=== PATIENT | female | born 1985 | race Hispanic/Latino ===

== ENCOUNTER 2016-06-10 10:26 | Day surgery (SDC) | payer MEDICAID, OTHER ==
[~2016-06-10] VITALS: Ht 160 cm; Wt 98.4 kg
[~2016-06-10 10:26] MED LIST: CODE118S2 PO; DOCU100C37 PO; FERR-84 PO; GFN600TCR PO; IBUP-1773 PO; PRD20T PO; PREN-53 PO
--- NOTE | 2016-06-10 10:38 | ED Abdominal Pain ---
General Stated Complaint: ABD PAIN Source of Information: Patient Exam Limitations: No Limitations History of Present Illness Time Seen By Provider: 10:37 Initial Comments to ER with epigastric abdominal pain that began at 8 p.m. last night after eating fried chicken. She's had nausea and vomiting as well. She attempted to eat cereal this morning but only ate about 3 bites due to the pain. Severity/Quality: Moderate Location: Epigastric Associated Symptoms: No Fever/Chills, Nausea/Vomiting Allergies and Home Medications Allergies Coded Allergies: No Known Drug Allergies (Unverified , 02/01/13) Review of Systems Constitutional: see HPI EENTM: No Symptoms Reported Respiratory: No Symptoms Reported Cardiovascular: No Symptoms Reported Gastrointestinal: See HPI Abdominal Pain Nausea Vomiting Genitourinary: No Symptoms Reported Musculoskeletal: no symptoms reported Skin: no symptoms reported Psychiatric/Neurological: No Symptoms Reported Endocrine: No Symptoms Reported Past Jqslmpn-Wztncs-Wlzcmc Hx Patient Social History Recent Foreign Travel: No Contact w/Someone Who Travel: No Recent Hopitalizations: No Immunizations Up To Date Tetanus Booster (TDap): Unknown PED Vaccines UTD: Yes Seasonal Allergies Seasonal Allergies: No Surgeries HX Surgeries: No Respiratory Hx Respiratory Disorders: No Cardiovascular Hx Cardiac Disorders: No Neurological Hx Neurological Disorders: No Reproductive System Hx Reproductive Disorders: No Sexually Transmitted Disease: No HIV/AIDS: No Genitourinary Hx Genitourinary Disorders: No Gastrointestinal Hx Gastrointestinal Disorders: No Musculoskeletal Hx Musculoskeletal Disorders: No Endocrine Hx Endocrine Disorders: No HEENT HX ENT Disorders: No Cancer Hx Cancer: No Psychosocial Hx Psychiatric Problems: No Integumentary HX Skin/Integumentary Disorder: No Blood Transfusions Hx Blood Disorders: No Adverse Reaction to a Blood Tr: No Family Medical History Family Medial History: Hypercholesterolemia 19 MOTHER Physical Exam Vital Signs VS - Last 72 Hours, by Label 06/10/16 10:30 Temp 96.0 Pulse 96 Resp 18 B/P 135/75 Pulse Ox 98 O2 Delivery Room Air Capillary Refill : General Appearance: WD/WN no apparent distress obese HEENT: PERRL/EOMI normal ENT inspection Neck: non-tender full range of motion Respiratory: normal breath sounds no respiratory distress no accessory muscle use Cardiovascular: regular rate, rhythm no murmur Gastrointestinal: normal bowel sounds soft tenderness (right upper quadrant and epigastric) Extremities: normal range of motion non-tender Neurologic/Psychiatric: no motor/sensory deficits alert normal mood/affect oriented x 3 Skin: normal color warm/dry Progress/Results/Core Measures Results/Orders Lab Results Laboratory Tests Test 06/10/16 10:21 06/10/16 10:41 Range/Units Alanine Aminotransferase (ALT/SGPT) 16 0-55 U/L Albumin 4.2 3.2-4.5 G/DL Alkaline Phosphatase 89 40-136 U/L Amylase Level 52 25-125 U/L Anion Gap 10 5-14 MMOL/L Aspartate Amino Transf (AST/SGOT) 15 5-34 U/L BUN/Creatinine Ratio 15 Basophils # (Auto) 0.0 0.0-0.1 10^3/uL Basophils (%) (Auto) 0 0-10 % Blood Urea Nitrogen 11 7-18 MG/DL Calcium Level 9.4 8.5-10.1 MG/DL Carbon Dioxide Level 22 21-32 MMOL/L Chloride Level 108 H 98-107 MMOL/L Creatinine 0.73 0.60-1.30 MG/DL Eosinophils # (Auto) 0.0 0.0-0.3 10^3/uL Eosinophils (%) (Auto) 0 0-10 % Estimat Glomerular Filtration Rate > 60 Glucose Level 111 H 70-105 MG/DL Hematocrit 36 35-52 % Hemoglobin 11.8 11.5-16.0 G/DL Lipase 18 8-78 U/L Lymphocytes # (Auto) 1.3 1.0-4.0 X 10^3 Lymphocytes (%) (Auto) 11 L 12-44 % Mean Corpuscular Hemoglobin 24 L 25-34 PG Mean Corpuscular Hemoglobin Concent 33 32-36 G/DL Mean Corpuscular Volume 74 L 80-99 FL Mean Platelet Volume 10.5 H 7.4-10.4 FL Monocytes # (Auto) 0.4 0.0-1.0 X 10^3 Monocytes (%) (Auto) 4 0-12 % Neutrophils # (Auto) 10.1 H 1.8-7.8 X 10^3 Neutrophils (%) (Auto) 85 H 42-75 % Platelet Count 348 130-400 10^3/uL Potassium Level 3.7 3.6-5.0 MMOL/L Red Blood Count 4.89 4.35-5.85 10^6/uL Red Cell Distribution Width 16.3 H 10.0-14.5 % Sodium Level 140 135-145 MMOL/L Total Bilirubin 0.4 0.1-1.0 MG/DL Total Protein 7.6 6.4-8.2 G/DL White Blood Count 11.9 H 4.3-11.0 10^3/uL Urine Bacteria MODERATE H /HPF Urine Bilirubin NEGATIVE NEGATIVE Urine Casts NONE /LPF Urine Clarity CLEAR Urine Color YELLOW Urine Crystals NONE /LPF Urine Culture Indicated YES Urine Glucose (UA) NEGATIVE NEGATIVE Urine Ketones NEGATIVE NEGATIVE Urine Leukocyte Esterase 3+ H NEGATIVE Urine Mucus SMALL H /LPF Urine Nitrite NEGATIVE NEGATIVE Urine Protein 1+ H NEGATIVE Urine RBC 2-5 H /HPF Urine RBC (Auto) 4+ H NEGATIVE Urine Specific [place] 1.020 1.016-1.022 Urine Squamous Epithelial Cells 5-10 /HPF Urine Urobilinogen NORMAL NORMAL MG/DL Urine WBC 50-100 H /HPF Urine pH 6 5-9 My Orders Orders-BONNIE LANDRY APRN Cbc With Automated Diff (06/10/16 10:35) Comprehensive Metabolic Panel (06/10/16 10:35) Ua Culture If Indicated (06/10/16 10:35) Saline Lock/Iv-Start (06/10/16 10:35) Lipase (06/10/16 10:35) Amylase (06/10/16 10:35) Fentanyl Injection (Sublimaze Injection (06/10/16 10:45) Urine Bedside (06/10/16 10:35) Ns Iv 1000 Ml (Sodium Chloride 0.9%) (06/10/16 10:45) Ct Abdomen/Pelvis W (06/10/16 10:35) Iohexol Injection (Omnipaque 350 Mg/Ml 1 (06/10/16 11:00) Sodium Chloride Flush (Catheter Flush Sy (06/10/16 11:00) Ns (Ivpb) (Sodium Chloride 0.9% Ivpb Bag (06/10/16 11:00) Urine Culture (06/10/16 10:41) Ceftriaxone Injection (Rocephin Injectio (06/10/16 11:15) Us Gallbladder [id number] (06/10/16 11:19) Ketorolac Injection (Toradol Injection) (06/10/16 11:45) Medications Given in ED Current Medications Medications Dose Ordered Sig/Amanda Route Start Time Stop Time Status Last Admin Dose Admin Ceftriaxone Sodium/Sodium Chloride 50 ml @ 100 mls/hr ONCE ONCE IV 06/10/16 11:15 06/10/16 11:44 DC 06/10/16 11:26 100 MLS/HR Fentanyl Citrate 50 mcg ONCE ONCE IVP 06/10/16 10:45 06/10/16 10:46 DC 06/10/16 10:44 50 MCG Iohexol 100 ml ONCE ONCE IV 06/10/16 11:00 06/10/16 11:07 DC 06/10/16 11:09 100 ML Ketorolac Tromethamine 30 mg ONCE ONCE IVP 06/10/16 11:45 06/10/16 11:46 DC 06/10/16 12:12 30 MG Sodium Chloride 100 ml 100 ml ONCE ONCE IV 06/10/16 11:00 06/10/16 11:07 DC 06/10/16 11:09 100 ML Vital Signs/I&O Vital Sign - Last 12Hours 06/10/16 10:30 Temp 96.0 Pulse 96 Resp 18 B/P 135/75 Pulse Ox 98 O2 Delivery Room Air Diagnostic Imaging Diagonstic Imaging: CT ([place]) Comments NAME: JONAH ALVARADO MED REC#: [id number] PT STATUS: REG ER : 1985 PHYSICIAN: BONNIE LANDRY APRN ADMIT DATE: 06/10/16/ER Draft Date of Exam:06/10/16 CT ABDOMEN/PELVIS W PROCEDURE: CT abdomen and pelvis with contrast. TECHNIQUE: Multiple contiguous axial images were obtained through the abdomen and pelvis after administration of intravenous contrast. INDICATION: Upper abdominal pain. FINDINGS: There are occasional calcified granulomas noted within the left hilum and left lower lobe. No focal hepatic or splenic abnormality is identified. There are multiple gas containing calculi within the lumen of the gallbladder. No significant intra or extrahepatic biliary ductal dilatation is identified. There is no evidence of pancreatic, adrenal, or renal abnormality. No free fluid is seen in the abdomen or pelvis. There is no evidence of pathologically enlarged adenopathy. The appendix has a normal appearance. The partially opacified urinary bladder is unremarkable. A moderate amount of stool is present in the right colon with fluid distention of the stomach and duodenum. IMPRESSION: Cholelithiasis without evidence of surrounding inflammation or biliary ductal dilatation. Otherwise, there is no acute abnormality seen in the abdomen or pelvis. Dictated on workstation # [id number] Dict: 06/10/16 1124 Trans: 06/10/16 1143 [id number] Interpreted by: TOÑO REYNOSO MD Electronically signed by: Departure Communication Time/Spoke to Admitting Phy: 12:[address] Becerra is here to see the patient. We'll take the patient to surgery at 330 today. Impression Impression: Primary Impression: Symptomatic cholelithiasis Additional Impression: Urinary tract infection Disposition: 01 HOME, SELF-CARE Condition: Stable Departure-Patient Inst. Decision time for Depature: 11:50 Referrals: [facility] (PCP/Family) Primary Care Physician Scripts Ciprofloxacin HCl (Cipro)500 Mg [id number] Mg PO BID #14 TAB Prov:BONNIE LANDRY APRN 06/10/16 BONNIE LANDRY APRN Jun 10, 2016 10:38
[2016-06-10 10:44] LABS: BASOPHILS % (AUTO) 0 % (0-10); EOSINOPHILS % (AUTO) 0 % (0-10); LYMPHOCYTES # (AUTO) 1.3 X 10^3 (1.0-4.0); LYMPHOCYTES % (AUTO) 11 % (12-44); MEAN CORPUSCULAR HEMOGLOBIN 24 PG (25-34); MEAN CORPUSCULAR HGB CONC 33 G/DL (32-36); MEAN CORPUSCULAR VOLUME 74 FL (80-99); MEAN PLATELET VOLUME 10.5 FL (7.4-10.4); MONOCYTES # (AUTO) 0.4 X 10^3 (0.0-1.0); MONOCYTES % (AUTO) 4 % (0-12); NEUTROPHILS # (AUTO) 10.1 X 10^3 (1.8-7.8); NEUTROPHILS % (AUTO) 85 % (42-75); PLATELET COUNT 348 10^3/uL (130-400); RED BLOOD COUNT 4.89 10^6/uL (4.35-5.85); RED CELL DISTRIBUTION WIDTH 16.3 % (10.0-14.5); WHITE BLOOD COUNT 11.9 10^3/uL (4.3-11.0)
[2016-06-10] MEDS ORDERED: fentaNYL INJECTION 100 MCG/2 ML AMP IVP ONE (10:45)
[2016-06-10] MEDS ORDERED: NS IV 1000 ML 1,000 ML IV SCH (10:45)
[2016-06-10 10:54] LABS: BILIRUBIN,URINE NEGATIVE (NEGATIVE); KETONES,URINE NEGATIVE (NEGATIVE); LEUKOCYTE ESTERASE ,URINE 3+ (NEGATIVE); NITRITE,URINE NEGATIVE (NEGATIVE); PH,URINE 6 (5-9); PROTEIN,URINE 1+ (NEGATIVE); UROBILINOGEN,URINE NORMAL (NORMAL)
[2016-06-10] MEDS ORDERED: IOHEXOL 350 MG/ML 100 ML (OMNIPAQUE 350) VIAL IV ONE (11:00)
[2016-06-10] MEDS ORDERED: NS 100 ML (IVPB) BAG IV ONE (11:00)
[2016-06-10] MEDS ORDERED: CATHETER FLUSH 10 ML SYR IV PRN (11:00)
[2016-06-10 11:04] LABS: ALANINE AMINOTRANSFERASE 16 U/L (0-55); ALBUMIN 4.2 G/DL (3.2-4.5); AMYLASE 52 U/L (25-125); ANION GAP 10 MMOL/L (5-14); ASPARTATE AMINO TRANSFERASE 15 U/L (5-34); BILIRUBIN,TOTAL 0.4 MG/DL (0.1-1.0); BLOOD UREA NITROGEN 11 MG/DL (7-18); BUN/CREATININE RATIO 15; CALCIUM 9.4 MG/DL (8.5-10.1); CARBON DIOXIDE 22 MMOL/L (21-32); CHLORIDE 108 MMOL/L (98-107); CREATININE SERUM 0.73 MG/DL (0.60-1.30); GFR ESTIMATED > 60; GLUCOSE 111 MG/DL (70-105); LIPASE 18 U/L (8-78); POTASSIUM 3.7 MMOL/L (3.6-5.0); SODIUM 140 MMOL/L (135-145); TOTAL PROTEIN 7.6 G/DL (6.4-8.2)
[2016-06-10 11:07] LABS: WBC,URINE 50-100 /HPF
[2016-06-10] MEDS ORDERED: cefTRIAXone INJECTION 1,000 MG in NS (IVPB) 50 ML IV ONE (11:15)
--- NOTE | 2016-06-10 11:44 | Diagnostic Imaging Report ---
PROCEDURE: CT abdomen and pelvis with contrast. TECHNIQUE: Multiple contiguous axial images were obtained through the abdomen and pelvis after administration of intravenous contrast. INDICATION: Upper abdominal pain. FINDINGS: There are occasional calcified granulomas noted within the left hilum and left lower lobe. No focal hepatic or splenic abnormality is identified. There are multiple gas containing calculi within the lumen of the gallbladder. No significant intra or extrahepatic biliary ductal dilatation is identified. There is no evidence of pancreatic, adrenal, or renal abnormality. No free fluid is seen in the abdomen or pelvis. There is no evidence of pathologically enlarged adenopathy. The appendix has a normal appearance. The partially opacified urinary bladder is unremarkable. A moderate amount of stool is present in the right colon with fluid distention of the stomach and duodenum. IMPRESSION: Cholelithiasis without evidence of surrounding inflammation or biliary ductal dilatation. Otherwise, there is no acute abnormality seen in the abdomen or pelvis. Dictated by: Dictated on workstation # [id number]
[2016-06-10] MEDS ORDERED: KETOROLAC 30 MG/ML VIAL IVP ONE (11:45)
--- NOTE | 2016-06-10 12:35 | Diagnostic Imaging Report ---
PROCEDURE: US Gallbladder. TECHNIQUE: Multiple real-time grayscale images were obtained over the right upper quadrant in various projections. INDICATION: Right upper quadrant pain. COMPARISON: CT same date. DISCUSSION: Sonographic evaluation of the right upper quadrant was performed. The liver appears normal in echotexture and size. No hepatic mass identified. Cholelithiasis is present. Multiple small shadowing stones are noted within the gallbladder lumen. No gallbladder wall thickening or pericholecystic fluid identified. No evidence of biliary duct dilatation. The common bile duct is normal measuring 0.67 cm. The pancreas appears normal as visualized. The right kidney appears normal in echotexture and size without evidence of hydronephrosis or renal mass. The right kidney measures 12.2 cm. There is no ascites or abnormal bowel loops identified. Positive sonographic German's sign was reported. IMPRESSION: 1. Cholelithiasis with a positive sonographic German's sign. There is no gallbladder wall thickening or pericholecystic fluid. Recommend clinical correlation. Dictated by: Dictated on workstation # [id number]
[2016-06-10] MEDS ORDERED: CIPR-225 PO (12:38)
[2016-06-10] MEDS: LACTATED RINGERS 1,000 ML IV PRN ×2 (13:30→16:27)
--- NOTE | 2016-06-10 13:31 | History & Physical-Surgical ---
History of Present Illness History of Present Illness Reason for visit/HPI CC: RUQ abdominal pain: Patient is a 30 year old female that began having pain in the right upper quadrant last night after eating fried chicken. Pain in right upper quadrant, no real radiation of the pain. Sharp in nature. Moderate intensity. Loss of appetite secondary to pain. Has nausea and emesis. Had ct scan demonstrating cholelithiasis and u/s + dawkins 's sign and cholelithiasis. Food made pain worse, nothing really makes better. Denies any fever sweats chills shortness of breath or chest pain. Date of Admission Today I consulted on this patient on 06/10/16 13:25 Attending Physician Wagner Becerra DO Admitting Physician [place],[facility] Consult Allergies and Home Medications Allergies Coded Allergies: No Known Drug Allergies (Unverified , 02/01/13) Home Medications Ciprofloxacin HCl 500 Mg Tablet #14 500 MG PO BID Prescribed by: BONNIE LANDRY on 06/10/16 1238 Past Wmhmtnm-Cdwdcm-Ilzvvd Hx Patient Social History Alcohol Use: Denies Use Recreational Drug Use: No Smoking Status: Never a Smoker Recent Foreign Travel: No Contact w/Someone Who Travel: No Recent Infectious Disease Expo: No Recent Hopitalizations: No Immunizations Up To Date Tetanus Booster (TDap): Unknown PED Vaccines UTD: Yes Seasonal Allergies Seasonal Allergies: No Surgeries HX Surgeries: No Respiratory Hx Respiratory Disorders: No Cardiovascular Hx Cardiac Disorders: No Neurological Hx Neurological Disorders: No Reproductive System Hx Reproductive Disorders: No Sexually Transmitted Disease: No HIV/AIDS: No Genitourinary Hx Genitourinary Disorders: No Gastrointestinal Hx Gastrointestinal Disorders: No Musculoskeletal Hx Musculoskeletal Disorders: No Endocrine Hx Endocrine Disorders: No HEENT HX ENT Disorders: No Cancer Hx Cancer: No Psychosocial Hx Psychiatric Problems: No Integumentary HX Skin/Integumentary Disorder: No Blood Transfusions Hx Blood Disorders: No Adverse Reaction to a Blood Tr: No Family Medical History Significant Family History: No Pertinent Family Hx Family Medial History: Hypercholesterolemia 19 MOTHER Constitutional: see HPI EENTM: no symptoms reported Respiratory: no symptoms reported Cardiovascular: no symptoms reported Gastrointestinal: see HPI Genitourinary: no symptoms reported Musculoskeletal: no symptoms reported Skin: no symptoms reported Psychiatric/Neurological: No Symptoms Reported Physical Exam Vital Signs Vital Sign - Last 12Hours 06/10/16 10:30 Temp 96.0 Pulse 96 Resp 18 B/P 135/75 Pulse Ox 98 O2 Delivery Room Air Capillary Refill : Less Than 3 Seconds General Appearance: No Apparent Distress HEENT: PERRL/EOMI Neck: Non Tender Supple Respiratory: No Accessory Muscle Use No Respiratory Distress Cardiovascular: Regular Rate, Rhythm Gastrointestinal: Tenderness (right upper quadrant, no palpable masses no guarding or rebounding) Rectal: Deferred Back: Normal Inspection Extremity: Non Tender Neurologic/Psychiatric: Alert Oriented x3 No Motor/Sensory Deficits Normal 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 Norm as Tested Skin: Warm/Dry Data Review Labs Laboratory Tests 06/10/16 10:21: Alanine Aminotransferase (ALT/SGPT) 16, Albumin 4.2, Alkaline Phosphatase 89, Amylase Level 52, Anion Gap 10, Aspartate Amino Transf (AST/SGOT) 15, BUN/ Creatinine Ratio 15, Basophils # (Auto) 0.0, Basophils (%) (Auto) 0, Blood Urea Nitrogen 11, Calcium Level 9.4, Carbon Dioxide Level 22, Chloride Level 108H, Creatinine 0.73, Eosinophils # (Auto) 0.0, Eosinophils (%) (Auto) 0, Estimat Glomerular Filtration Rate > 60, Glucose Level 111H, Hematocrit 36, Hemoglobin 11.8, Lipase 18, Lymphocytes # (Auto) 1.3, Lymphocytes (%) (Auto) 11L, Mean Corpuscular Hemoglobin 24L, Mean Corpuscular Hemoglobin Concent 33, Mean Corpuscular Volume 74L, Mean Platelet Volume 10.5H, Monocytes # (Auto) 0.4, Monocytes (%) (Auto) 4, Neutrophils # (Auto) 10.1H, Neutrophils (%) (Auto) 85H, Platelet Count 348, Potassium Level 3.7, Red Blood Count 4.89, Red Cell Distribution Width 16.3H, Sodium Level 140, Total Bilirubin 0.4, Total Protein 7.6, White Blood Count 11.9H 06/10/16 10:41: Urine Bacteria MODERATEH, Urine Bilirubin NEGATIVE, Urine Casts NONE, Urine Clarity CLEAR, Urine Color YELLOW, Urine Crystals NONE, Urine Culture Indicated YES, Urine Glucose (UA) NEGATIVE, Urine Ketones NEGATIVE, Urine Leukocyte Esterase 3+H, Urine Mucus SMALLH, Urine Nitrite NEGATIVE, Urine Protein 1+H, Urine RBC 2-5H, Urine RBC (Auto) 4+H, Urine Specific [place] 1.020, Urine Squamous Epithelial Cells 5-10, Urine Urobilinogen NORMAL, Urine WBC 50-100H, Urine pH 6 Assessment/Plan Assessment/Plan Assessment/Plan Symptomatic cholelithiasis UTI Patient understand risks and benefits of laparoscopic cholecystectomy IOC all other indicated procedures and wishes to proceed. All questions answered. To or today. WAGNER BECERRA DO Jun 10, 2016 13:31
[2016-06-10] MEDS ORDERED: ceFAZolin 2 GM/50 ML NS 50 ML IV ONE ×2 (13:36→13:45)
[2016-06-10 13:44] VITALS: BP 118/87
[2016-06-10] MEDS ORDERED: ONDANSETRON 4 MG/2 ML (SDV) Z0FRAN ONE ×2 (14:32→16:33)
[2016-06-10] MEDS ORDERED: LACTATED RINGERS 1,000 ML IV ONE ×2 (14:32→16:20)
[2016-06-10] MEDS ORDERED: ROCURONIUM 50 MG/5 ML (ZEMURON) VIAL IV ONE (14:32)
[2016-06-10] MEDS ORDERED: SUCCINYLCHOLINE INJ 100 MG/5 ML SYR ONE (14:32)
[2016-06-10] MEDS ORDERED: DEXAMETHASONE PF 10 MG/ML (DECADRON) VIAL ONE (14:32)
[2016-06-10] MEDS ORDERED: fentaNYL INJECTION 250 MCG/5 ML AMP ONE (14:32)
[2016-06-10] MEDS ORDERED: MIDAZOLAM 2 MG/2 ML (VERSED) VIAL ONE (14:32)
[2016-06-10] MEDS ORDERED: proPOfol 200 MG/20 ML (DIPRIVAN) VIAL IV ONE (14:32)
[2016-06-10] MEDS ORDERED: SEVOFLURANE (ULTANE) 15 ML INHAL SOLN ONE (14:32)
[2016-06-10] MEDS ORDERED: LIDOCAINE PF 2% 10 ML (XYLOCAINE) AMP ONE (14:32)
[2016-06-10] MEDS ORDERED: LIDOCAINE 1% INJ 20 ML (XYLOCAINE) VIAL ONE (14:49)
[2016-06-10] MEDS ORDERED: BUPIVACAINE 0.5% 30 ML (SENSORCAINE) VIAL ONE (14:49)
[2016-06-10] MEDS ORDERED: DESFLURANE (SUPRANE) 15 ML INHAL SOLN ONE ×5 (15:32→16:20)
[2016-06-10] MEDS ORDERED: GLYCOPYRROLATE 0.2 MG/ML (ROBINUL) 2 ML VIAL ONE (16:33)
[2016-06-10] MEDS ORDERED: fentaNYL INJECTION 100 MCG/2 ML AMP ONE (16:33)
[2016-06-10] MEDS ORDERED: NEOSTIGMINE (BLOXIVERZ ) 1 MG/1ML 10 ML VIAL ONE (16:33)
[2016-06-10] MEDS ORDERED: HYDROcodone/APAP 5 MG/325 MG (LORTAB) TAB PO PRN (16:45)
--- NOTE | 2016-06-10 16:57 | Progress Note-Post Operative ---
Post-Operative Progess Note Insurance Advisor Dr. Watts Pre-Operative Diagnosis symptomatic cholelithiasis Post-Operative Diagnosis acute cholecystitis, cholelithiasis, filling defect of cbd Post-Op Procedure Note Date of Procedure: Jun 10, 2016 Name of Procedure: lap katiana c ioc Procedure Note/Findings see note Anesthesia Type general Estimated blood loss (mL): minimal Specimen(s) collected gallbladder WAGNER DAVIS DO Jun 10, 2016 16:57
[2016-06-10] MEDS ORDERED: LACTATED RINGERS 1,000 ML BAG IV SCH (17:00)
[2016-06-10] MEDS: LACTATED RINGERS 1,000 ML IV SCH (17:15)
[2016-06-10] MEDS ORDERED: PROMETHAZINE INJ 25 MG/ML (PHENERGAN) AMP IVP PRN (17:15)
[2016-06-10] MEDS ORDERED: MEPERIDINE (DEMEROL) INJ 50 MG/ML IVP PRN (17:15)
[2016-06-10] MEDS ORDERED: ONDANSETRON 4 MG/2 ML (SDV) Z0FRAN IVP PRN (17:15)
[2016-06-10] MEDS: fentaNYL INJECTION 100 MCG/2 ML AMP IVP PRN ×2 (17:23→17:28)
[2016-06-10 17:55] VITALS: BP 127/69
[2016-06-10] MEDS: morphine INJ 4 MG/ML 1 ML (VIAL/SYRINGE) IVP PRN ×3 (18:26→23:46)
[2016-06-10] MEDS ORDERED: FLU TRIvalent (5 YOA+) 2016-17 (AFLURIA) 0.5 ML IM ONE (19:00)
--- NOTE | 2016-06-10 19:47 | Diagnostic Imaging Report ---
Intraoperative cholangiogram. INDICATION: Abdominal pain Fluoroscopy time provided to the OR is 12 seconds 5 cc of Omnipaque 300 is administered. FINDINGS: Provided image demonstrates opacification of the CBD which is normal in caliber. There is suggestion of filling defect in the distal CBD without emptying into the duodenum. There is opacification of the intrahepatic biliary tree which appears normal. IMPRESSION: Suggestion of obstruction of the distal CBD could be related to spasm or distal CBD stone. The findings were discussed with the Dr. Becerra by Dr. Rao at time of dictation. Dictated by: Dictated on workstation # [id number]
[2016-06-10 20:00] VITALS: BP 118/80
[2016-06-10] MEDS: CIPROFLOXACIN IV 400MG/200ML 200 ML IV SCH (20:39)
[2016-06-11] VITALS: BP 121/70
[2016-06-11] MEDS: LACTATED RINGERS 1,000 ML IV SCH ×2 (00:51→09:15)
[2016-06-11 04:00] VITALS: BP 119/75
[2016-06-11 08:00] VITALS: BP 110/67
[2016-06-11] MEDS: CIPROFLOXACIN IV 400MG/200ML 200 ML IV SCH (08:52)
--- NOTE | 2016-06-11 09:49 | Diagnostic Imaging Report ---
PROCEDURE: MR imaging cholangiography-pancreatography. TECHNIQUE: Multiplanar imaging of the abdomen was performed on a 1.5 Mirna magnet without contrast. 3D reconstructions were made for the MRCP INDICATION: Abnormal intraoperative cholangiogram with no contrast passing into the duodenum seen. FINDINGS: The CBD is 4 mm in caliber. There is no filling defect or obstructive lesion identified. The intrahepatic biliary tree demonstrates normal caliber. The pancreatic duct is also normal. Post cholecystectomy changes are seen with an expected small amount of fluid in the cholecystectomy bed and tissue edema seen. The lungs demonstrate mild bibasilar atelectasis. The spleen, liver, adrenals, pancreas, and kidney parenchyma appear grossly unremarkable. IMPRESSION: No evidence of biliary obstruction or stones. Mild bibasilar lung atelectasis. Dictated by: Dictated on workstation # [id number]
--- NOTE | 2016-06-11 10:52 | Anesthesia-General Post-Op ---
General Patient Condition Mental Status/LOC: Same as Preop Cardiovascular: Satisfactory Nausea/Vomiting: Absent Respiratory: Satisfactory Pain: Controlled Complications: Absent Post Op Complications Complications None Follow Up Care/Instructions Patient Instructions None needed. Anesthesia/Patient Condition Patient Condition Patient is doing well, no complaints, stable vital signs, no apparent adverse anesthesia problems. No complications reported per nursing. ANNMARIE BEATTY CRNA Jun 11, 2016 10:52
[2016-06-11 12:46] VITALS: BP 125/68
[2016-06-11] MEDS ORDERED: HYDR-3812 PO (13:14)
[2016-06-11] MEDS ORDERED: DOCU-143 PO (13:14)
--- NOTE | 2016-06-11 13:16 | Discharge Inst-Simple/Standard ---
Discharge Inst-Standard Patient Instructions/Follow Up Plan of Care/Instructions/FU: Follow up with Dr. Becerra in 2 weeks Follow up with PCP in one week Take medication as directed. Activity as Tolerated: No Discharge Diet: No Restrictions Other Inst to Patient Follow up Appt: Make appointment for 2 weeks. Instructions: No lifting greater than 10 pounds. No strenuous activity. May shower in 24 hours, no tub bath or soaking. Use incentive spirometer at home as directed. No Smoking Skin/Wound Care: May remove bandages. You need to leave the white strips over incision on they will fall off on their own. Symptoms to Report: Appetite Changes, Extremity Discoloration, Numbness/Tingling, Swelling Increased , Bleeding Excessive, Eyesight Changes, Pain Increased, Urine Color Change, Constipation(Persistent), Fever over 101 degree F, Pain/Pressure in chest, Urinating Difficulty, Cough Up/Vomit Blood, Heart Beat Irreg/Pounding, Pain/ Pressure in jaw, Vaginal Bleeding Increase, Cramps in feet or legs, Lightheadedness, Pain/Pressure in shoulder, Diarrhea(Persistent), Memory Changes Suddenly, Questions/Concerns, Weight gain consecutive days, Dizziness/ Fainting, Nausea/Vomiting, Shortness of Breath, Weight gain over 2 pounds If questions or concerns contact your physician Or seek help at emergency department. ELSIE LLANOS APRN Jun 11, 2016 13:15
--- NOTE | 2016-06-11 13:34 | Progress Note ---
Subjective Subjective/Events-last exam Patient feeling better. Pain controlled. MRCP showing patent duct no filling defects. denies n/v fever swats chills shortness of breath or chest pain. Objective Exam Vital Signs Date Time Temp Pulse Resp B/P Pulse Ox O2 Delivery O2 Flow Rate FiO2 06/11/16 12:46 98.4 58 16 125/68 97 Room Air 06/11/16 08:00 98.0 53 16 110/67 95 Room Air 06/11/16 04:00 98.8 65 20 119/75 96 Room Air 06/11/16 00:00 98.1 55 16 121/70 97 Room Air 06/10/16 20:00 98.5 72 20 118/80 100 Room Air 06/10/16 18:42 93 Room Air 06/10/16 17:55 97.2 70 18 127/69 93 Room Air 06/10/16 13:44 98.3 58 16 118/87 100 Room Air I & O 06/11/16 07:00 Intake Total 2350 ml Output Total 600 ml Balance 1750 ml Capillary Refill : Less Than 3 SecondsLess Than 3 Seconds General Appearance: No Apparent Distress HEENT: PERRL/EOMI Neck: Non Tender Supple Respiratory: No Accessory Muscle Use No Respiratory Distress Cardiovascular: Regular Rate, Rhythm Gastrointestinal: normal bowel sounds soft tenderness (incisional) Extremity: Non Tender Neurologic/Psychiatric: Alert Oriented x3 No Motor/Sensory Deficits Normal Mood/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 Final Diagnosis acute cholecystitis, cholelithiasis, s/p lap katiana c IOC, UTI Clinical Quality Measures DVT/VTE Risk/Contraindication: Risk Factor Score Per Nursin RFS Level Per Nursing on Admit: 2=Moderate WAGNER DAVIS DO Jun 11, 2016 13:34
[2016-06-11 14:00] VITALS: BP 125/68
--- NOTE | 2016-06-12 10:05 | OPERATIVE REPORT ---
PROCEDURE PHYSICIAN: WAGNER DAVIS DATE OF PROCEDURE: 06/10/2016 PREOPERATIVE DIAGNOSIS: Symptomatic cholelithiasis. POSTOPERATIVE DIAGNOSIS: Acute cholecystitis, cholelithiasis, filling defect of the common bile duct. PROCEDURE: Laparoscopic cholecystectomy with intraoperative cholangiogram. SURGEON: Mariam. NITROGLYCERIN DISTRIBUTOR: Dr. Watts, assist in retraction, dissection, and closure. ANESTHESIA: General. ESTIMATED BLOOD LOSS: Minimal. COMPLICATIONS: None. INDICATIONS: The patient is a 30-year-old female who presented to the emergency department today with right upper quadrant abdominal pain. The patient states it started last night after eating fried chicken. She had a CT scan demonstrating cholelithiasis of the gallbladder and ultrasound demonstrating cholelithiasis. No gallbladder wall thickening or pericholecystic fluid. The patient on physical exam had significant tenderness in the right upper quadrant. She was explained risk and benefits of laparoscopic cholecystectomy with intraoperative cholangiogram and all indicated procedures. She understands and wishes to proceed. Consent was signed on the chart. PROCEDURE: The patient was taken to the operating suite. She was prepped and draped in the sterile fashion. A surgical pause was performed. A 12 mm incision was made just superior to the umbilicus. Dissection was taken with blunt dissection cautery dissection until the fascia was visualized. This was then scored, grasped with Kochers and the abdomen was then entered. A balloon trocar was inserted into the abdomen. The balloon was insufflated and the abdomen was then insufflated. The scope was inserted in the abdomen and under direct visualization of the laparoscope, a 5 mm trocar was placed in the subxiphoid region and two 5-mm trocars were placed in the right upper quadrant. Total of 20 mL of 0.5% Marcaine and 1% lidocaine 50:50 ratio was used to anesthetize the incisions before making them. The gallbladder was significantly distended, erythematous and had lots of edema around the gallbladder. The gallbladder was then grasped and elevated. The cystic duct and cystic artery were then dissected out. Clips were placed on the cystic artery and a clip was placed on the distal portion of the cystic duct. The cystic duct was then partially transected. The arrow catheter was inserted into the duct, the balloon was insufflated and cholangiogram was then performed. The common bile duct appeared to have a possible filling defect distally; contrast did not make its way into the duodenum. The catheter was then removed. Clips were placed on the proximal portion of the cystic duct and this was then transected and the cystic artery was then transected. Hook cautery was used to dissect the gallbladder from the gallbladder fossa achieving hemostasis. The gallbladder was placed in an Endobag and removed through the 12 mm trocar site. The abdomen was then irrigated with copious amounts of irrigation. The 12 mm trocar was then removed and an Endo Close was used to close the fascial defect along with using an 0 Vicryl and then additional sutures were also placed. The abdomen was then desufflated, the trocars were removed. The incisions were irrigated and dried. The skin was closed using 0 Vicryl in a subcuticular fashion and the area was then washed and dried. Mastisol and Steri-Strips were applied and sterile bandages were applied. The patient tolerated the procedure well without any complications. She was taken to the recovery room in stable condition. The patient will be admitted overnight and M.R.C.P. to be performed tomorrow to check due to possible spasm and we will plan on ERCP if M.R.C.P. demonstrate the occlusion as well. Job ID: [id number] Dictated Date: 06/10/2016 17:06:23 Manufacturing Worker Date: 06/12/2016 09:53:12 / krista REYNA
== END 2016-06-11 14:00 | disposition home or self-care (01) ==
LOC: EDUNIT# 10:26 → ER 10:28 → SDC 12:58 → 4TH 16:59 → UNDOADMOB 16:59 → 4TH 06-11 11:43 → UNDODISOB 06-11 14:00 → SDC 06-11 14:00
PROVIDERS: ATTEND Surgery
DX: K80.10 Calculus of gallbladder with chronic cholecystitis without obstruction (principal); N39.0 Urinary tract infection, site not specified
CPT/HCPCS: 36415; 74177; 74181; 76705; 80053; 81000; 82150; 83690; 84703; 85025; 87081; 87088; 88304; 96361; 96365; 96375

== ENCOUNTER 2018-07-10 08:25 | Emergency (ER) | payer BC ==
[~2018-07-10] VITALS: Ht 160 cm; Wt 104.3 kg
[~2018-07-10 08:25] MED LIST changes: +ACHD5005 PO; +CIPR-225 PO; +DOCU-143 PO
--- OUTSIDE RECORDS SUMMARY | 2018-07-10 08:32 | XMS REPORT ---
Author Author ILDARACHNA [facility] Address [address] [place] [address] Care Team Providers Care Civil Engineering Intern Name Role Phone RACHNA GONSALES Unavailable PROBLEMS Type Condition ICD9-CM Code [id number] Code Onset Dates Condition Status SNOMED Code Problem Family history of hyperlipidemia Z83.49 Active 976345579 Problem Family history of cancer Z80.9 Active 405175858 Problem Routine health maintenance Z00.00 Active 566614364 ALLERGIES No Information ENCOUNTERS Encounter Location Date Diagnosis [place] [address] [address] 16 Nov, 2017 [place] [address] [address] Oct, Allergic contact dermatitis due to food in contact with skin L23.6 [place] [address] [address] Jul, [place] [address] [place] [id number] [place] [address] Feb, Encounter for Nexplanon removal Z30.46 and BMI 40.0-44.9, adult Z68.41 [place] [address] [place] [id number] [place] [address] 84[address] 15 May, 2016 [facility] [address] [place] [id number] [place] [address] Mar, Other viral agents as the cause of diseases classified elsewhere B97.89 and Acute upper respiratory infection, unspecified J06.9 [place] [address] [place] [id number] [place] [address]397- 52[address] Mar, Encounter for dental examination and cleaning without abnormal findings Z01.20 [place] [address] [place] [id number] [place] [address]- 8700 16 Mar, 2016 Nexplanon insertion Z30.017 [facility] [address] [place] [id number] [place] [address] 35657- 5585 Mar, [facility] [address] [place] [id number] [place] [address] -[address] 05 Mar, 2016 Sore throat J02.9 and Strep pharyngitis J02.0 [place] [address] [place] [id number] [place] [address] 52930- 3359 02 Mar, 2016 Encounter for dental examination and cleaning without abnormal findings Z01.20 [place] [address] [place] [id number] [place] [address] 32357- 1511 12 Jan, 2016 Elevated liver enzymes R74.8 [place] [id number] [place] [address] 47[address]- 6003 07 Jan, 2016 Routine health maintenance Z00.00 ; Family history of hyperlipidemia Z83.49 and Family history of cancer Z80.9 [place] [address] [place] [id number] [place] [address]8630- 2438 30 Dec, 2015 Routine health maintenance Z00.00 ; Family history of hyperlipidemia Z83.49 ; Family history of cancer Z80.9 and Obesity (BMI 30-39.9 ) E66.9 [facility] [address] [place] [address]2496 -[address] 07 Dec, 2015 Upper respiratory tract infection, unspecified type J06.9 [facility] [address] [place] [id number] [place] [id number] Oct, Encounter for dental examination Z01.20 [facility] [address] [id number] [place] [address] [id number] Mar, Encounter for dental examination Z01.20 [facility] [address] [place] [id number] [place] [address] 08761- 3663 05 Dec, 2014 Cellulitis and abscess 682.9 [facility] [address] [place] [address] [id number] [address] Nov, Cellulitis and abscess 682.9 [facility] [address], [place] [address] Oct, TB (tuberculosis) 011.90 [facility] [address] [id number] [id number] Sep, Dental examination V72.2 [facility] [address], [place] [address] 14 Jul, 2014 [facility] [address] [place] [id number] [address] Jul, [facility] [address], [place] [address] Jun, [facility] [address], [place] [address] Jun, [facility] [address], [place] [address] Jun, [facility] [address] [place] [id number] [address] 12[address] Jun, [facility] [address], [place] [address] 3[address] Mar, [facility] [address] [place] [address] [id number], [place] [address] 3[address] Mar, [facility] [address] [facility] [id number], [place] [address] Mar, [facility] [address] [facility] [id number] [address] Mar, [facility] [address] [place] [id number], [place] [address] 37[address] Mar, [facility] [address] [place] [id number], [place] [address] 5[address] Mar, [facility] [address] [facility] [id number] [place] [address] Mar, [facility] [address] [id number] [place] [address] 8435 Jan, [facility] [address] [id number] [place] [address] 8089 Jan, [facility] [address] [facility] [id number] [place] [address]- 0463 Sep, [facility] [address] [id number] [place] [address]- 68[address] Sep, [facility] [address] [facility] [id number] [place] [address]- 3986 Sep, [facility] [address] [facility] [id number] [place] [address]- 7614 Sep, [facility] [address] [address] 35[address] Sep, [facility] [address] [facility] [id number] [place] [address]- 8848 Sep, [facility] [address] [facility] [id number] [place] [address]- 2084 August, [facility] [address] [facility] [id number] [place] [address]- 0844 May, [facility] [address] [facility] [id number] [place] [address]- 6483 May, [facility] [address] [facility] [id number] [place] [address]- 4160 Apr, [facility] [address] [facility] [id number] [place] [address]- 8049 Apr, [facility] [address] [facility] [id number] [place] [address]- 5[address] Nov, [facility] [address] [facility] [id number] [place] [address]- 4906 Jul, IMMUNIZATIONS No Known Immunizations SOCIAL HISTORY Never Assessed REASON FOR VISIT Requests return call PLAN OF CARE VITAL SIGNS MEDICATIONS Unknown Medications RESULTS No Results PROCEDURES No Known procedures INSTRUCTIONS MEDICATIONS ADMINISTERED No Known Medications MEDICAL (GENERAL) HISTORY Type Description Date Medical History 12/26/15 Surgical History Galbladder removed 2016 Hospitalization History child births
--- OUTSIDE RECORDS SUMMARY | 2018-07-10 08:32 | XMS REPORT ---
Author Author ALYCIA DIALLO Organization [facility] Address [address] [place] [address] Care Team Providers Care Digital Imaging Specialist Name Role Phone DIALLO TONG Unavailable PROBLEMS Type Condition ICD9-CM Code [id number] Code Onset Dates Condition Status SNOMED Code Problem Routine health maintenance Z00.00 Active 925725155 Problem Family history of hyperlipidemia Z83.49 Active 450981147 Problem Family history of cancer Z80.9 Active 269222042 Problem Obesity (BMI 30-39.9) E66.9 Active 313907595 ALLERGIES Substance Reaction Event Type Date Status N.K.D.A. Unknown Non Drug Allergy Mar, Unknown SOCIAL HISTORY No smoking Hx information available PLAN OF CARE Activity Details Follow Up prn Reason: VITAL SIGNS Height 63 in 2016-04-11 Weight 217 lbs 2016-04-11 Temperature 98.4 degrees Fahrenheit 2016-04-11 Heart Rate 90 bpm 2016-04-11 Respiratory Rate 18 2016-04-11 BMI 38.44 kg/m2 2016-04-11 Blood pressure systolic 100 mmHg 2016-04-11 Blood pressure diastolic 60 mmHg 2016-04-11 MEDICATIONS Medication Instructions Dosage Frequency Start Date End Date Duration Status Nexplanon 68 MG Subcutaneous placed 04/11/16 as directed Mar, Active RESULTS Name Result Date Reference Range TEST, URINE (IN HOUSE) 2016-04-11 RESULTS negative Lot # [id number] Control + Exp date 07/2017 PROCEDURES Procedure Date Ordered Related Diagnosis Body Site URINE TEST Apr 11, 2016 INSERT DRUG IMPLANT DEVICE Apr 11, 2016 ETONOGESTREL IMPLANT SYSTEM Apr 11, 2016 IMMUNIZATIONS No Known Immunizations
--- OUTSIDE RECORDS SUMMARY | 2018-07-10 08:32 | XMS REPORT ---
Author Author HAMZAH ROCHA [facility] Address [address] [place] [address] Phone Unavailable Care Team Providers Care Transit Coach Operator Name Role Phone HAMZAH ROCHA Unavailable Unavailable PROBLEMS Type Condition ICD9-CM Code OVX44-SE Code Onset Dates Condition Status SNOMED Code Problem Routine health maintenance Z00.00 Active 744855743 Problem Family history of hyperlipidemia Z83.49 Active 434354624 Problem Family history of cancer Z80.9 Active 568895409 Problem Obesity (BMI 30-39.9) E66.9 Active 395393295 ALLERGIES Unknown Allergies SOCIAL HISTORY No smoking Hx information available PLAN OF CARE Activity Details Follow Up PRN Reason:RESTORATIVE VITAL SIGNS MEDICATIONS Unknown Medications RESULTS No Results PROCEDURES Procedure Date Ordered Related Diagnosis Body Site PERIODIC ORAL EXAMINATION Apr 17, 2016 [facility] Employee/Board adjustment Apr 17, 2016 Billing Notes on claim Apr 17, 2016 IMMUNIZATIONS No Known Immunizations
--- OUTSIDE RECORDS SUMMARY | 2018-07-10 08:32 | XMS REPORT ---
Author Author ILDARACHNA [facility] Address [address] [place] [address] Care Team Providers Care Analyst Market Intelligence Name Role Phone RACHNA GONSALES Unavailable PROBLEMS Type Condition ICD9-CM Code ZSX64-LF Code Onset Dates Condition Status SNOMED Code Problem Family history of hyperlipidemia Z83.49 Active 040725579 Problem Family history of cancer Z80.9 Active 994018589 Problem Routine health maintenance Z00.00 Active 314128289 ALLERGIES No Information ENCOUNTERS Encounter Location Date Diagnosis [place] [address] [address] Oct, Allergic contact dermatitis due to food in contact with skin L23.6 [place] [address] [address] Jul, [place] [address] [address] Feb, Encounter for Nexplanon removal Z30.46 and BMI 40.0-44.9, adult Z68.41 [place] [address] [place] [id number] [place] [address]- [address] 15 May, 2016 [facility] [address] [place] [id number] [place] [address] Mar, Other viral agents as the cause of diseases classified elsewhere B97.89 and Acute upper respiratory infection, unspecified J06.9 [place] [address] [address]- [address] Mar, Encounter for dental examination and cleaning without abnormal findings Z01.20 [place] [address] [place] [id number] [place] [address] 59690- 5499 16 Mar, 2016 Nexplanon insertion Z30.017 [facility] [address] [place] [address] 19150- 0558 Mar, [facility] [address] [place] [id number] [place] [address] -5506 Mar, Sore throat J02.9 and Strep pharyngitis J02.0 [place] [address] [address]- 9887 Mar, Encounter for dental examination and cleaning without abnormal findings Z01.20 [facility] [address] [place] [id number] [place] [address]01- 9524 Jan, Elevated liver enzymes R74.8 [place] [address] [address]- [address] Jan, Routine health maintenance Z00.00 ; Family history of hyperlipidemia Z83.49 and Family history of cancer Z80.9 [place] [address] [address]- [address] Dec, Routine health maintenance Z00.00 ; Family history of hyperlipidemia Z83.49 ; Family history of cancer Z80.9 and Obesity (BMI 30-39.9 ) E66.9 [facility] [address] [place] [id number] [place] [address]7065 -[address]497 Dec, Upper respiratory tract infection, unspecified type J06.9 [facility] [place] [facility] [address] [place] [id number] [place] [id number] Oct, Encounter for dental examination Z01.20 [facility] [place] [facility] [address] [id number] Mar, Encounter for dental examination Z01.20 [facility] [address] 7[address]- [address] Dec, Cellulitis and abscess 682.9 [facility] [address] [place] [id number] [place] [address]- [address]201 Nov, Cellulitis and abscess 682.9 [place] [address] [facility] [id number] [address] 18 Oct, 2014 TB (tuberculosis) 011.90 [facility] [place] [facility] [address] [id number] [place] [id number] 08 Sep, 2014 Dental examination V72.2 [facility] [address] [facility] [id number] [place] [address]- [address] 14 Jul, 2014 [facility] [address] [id number] [address]- [address] Jul, [facility] [address] [facility] [id number] [place] [address] 17 Jun, 2014 [facility] [place] [facility] [address] [facility] [id number] [place] [address]- 99[address] 17 Jun, 2014 [facility] [place] [facility] [address] [facility] [id number] [place] [address]- 5947 Jun, [facility] [place] [facility] [address] [facility] [id number] [place] [address]- 2629 Jun, [facility] [place] [facility] [address] [facility] [id number] [place] [address]- 7769 Mar, [facility] [place] [facility] [address] [facility] [id number] [place] [address]- 4544 Mar, [facility] [place] [facility] [address] [place] [id number] Mar, [facility] [address] [id number] [address]- 8[address] Mar, [facility] [address] [facility] [id number] [place] Mar, [facility] [address] [facility] [id number] [place] [address]- 5006 Mar, [facility] [address] [facility] [id number] [place] [address]- 2696 Mar, [facility] [address] [address]- 6[address] Jan, [facility] [address] [address]- 67[address] Jan, [facility] [address] [address]- 7641 Sep, [facility] [address] [address]- 5285 Sep, [facility] [address] [address]- 7[address] Sep, [facility] [address] [address]- 9[address] Sep, [facility] [address] [address]- 9846 Sep, [facility] [address] [address]- 0818 Sep, [facility] [address] [address]- 17[address] August, [facility] [address] [address] May, [facility] [address] [address]- [address] May, [facility] [address] [address]- 0723 Apr, [facility] [address] [place] [id number] [address]- 9[address] Apr, [facility] [address] [address]- 4[address] Nov, [facility] [address] [address]- 93[address] Jul, IMMUNIZATIONS No Known Immunizations SOCIAL HISTORY Never Assessed REASON FOR VISIT Requests return call PLAN OF CARE VITAL SIGNS MEDICATIONS No Known Medications RESULTS No Results PROCEDURES No Known procedures INSTRUCTIONS MEDICATIONS ADMINISTERED No Known Medications MEDICAL (GENERAL) HISTORY Type Description Date Medical History 12/26/15 Surgical History Galbladder removed 2016 Hospitalization History child births
--- OUTSIDE RECORDS SUMMARY | 2018-07-10 08:32 | XMS REPORT ---
Author Author RACHNA GONSALES Organization [facility] Address [address] [place] [address] Care Team Providers Care Access Services Assistant Name Role Phone RACHNA GONSALES Unavailable PROBLEMS Type Condition ICD9-CM Code KIR59-MX Code Onset Dates Condition Status SNOMED Code Problem Obesity (BMI 30-39.9) E66.9 Active 681276833 Problem Family history of hyperlipidemia Z83.49 Active 727466739 Problem Family history of cancer Z80.9 Active 991059038 Problem Routine health maintenance Z00.00 Active 743278428 ALLERGIES No Information SOCIAL HISTORY Never Assessed PLAN OF CARE VITAL SIGNS MEDICATIONS Unknown Medications RESULTS No Results PROCEDURES No Known procedures IMMUNIZATIONS No Known Immunizations MEDICAL (GENERAL) HISTORY Type Description Date Medical History 12/26/15 Hospitalization History child births
--- OUTSIDE RECORDS SUMMARY | 2018-07-10 08:32 | XMS REPORT ---
Author Author SARAH NICHOLE [facility] Address [address] [place] [address] Care Team Providers Care Site Lead Name Role Phone SARAH NICHOLE Unavailable PROBLEMS Type Condition ICD9-CM Code LPN77-BM Code Onset Dates Condition Status SNOMED Code Problem Encounter for dental examination Z01.20 Active 858002377 Assessment Upper respiratory tract infection, unspecified type J06.9 Dec, Active 37932831 ALLERGIES Substance Reaction Event Type Date Status N.K.D.A. Unknown Non Drug Allergy Dec, Unknown SOCIAL HISTORY No smoking Hx information available PLAN OF CARE VITAL SIGNS Height 63 in 2016-01-02 Weight 221.4 lbs 2016-01-02 Heart Rate 102 bpm 2016-01-02 Respiratory Rate 22 2016-01-02 BMI 39.21 kg/m2 2016-01-02 Blood pressure systolic 114 mmHg 2016-01-02 Blood pressure diastolic 80 mmHg 2016-01-02 MEDICATIONS Medication Instructions Dosage Frequency Start Date End Date Duration Status Iron 65 MG Active Orally Once a day 1 tablet 24h Active RESULTS No Results PROCEDURES Procedure Date Ordered Related Diagnosis Body Site Office Visit, Est Pt., Level 3 Jan 02, 2016 IMMUNIZATIONS No Known Immunizations
--- OUTSIDE RECORDS SUMMARY | 2018-07-10 08:32 | XMS REPORT ---
Author Author HAMZAH ROCHA [facility] Address [address] [place] [address] Phone Unavailable Care Team Providers Care Transportation Director Name Role Phone HAMZAH ROCHA Unavailable Unavailable PROBLEMS Type Condition ICD9-CM Code [id number] Code Onset Dates Condition Status SNOMED Code Problem Routine health maintenance Z00.00 Active 212280788 Problem Family history of hyperlipidemia Z83.49 Active 487128074 Problem Encounter for dental examination Z01.20 Active 918339601 Assessment Encounter for dental examination and cleaning without abnormal findings Z01.20 Mar, Active 619125668 Problem Family history of cancer Z80.9 Active 431585898 Problem Obesity (BMI 30-39.9) E66.9 Active 274969515 ALLERGIES Substance Reaction Event Type Date Status N.K.D.A. Unknown Non Drug Allergy Mar, Unknown SOCIAL HISTORY No smoking Hx information available PLAN OF CARE VITAL SIGNS MEDICATIONS Unknown Medications RESULTS No Results PROCEDURES Procedure Date Ordered Related Diagnosis Body Site INTRAORL-PERIAPICAL 1 FILM 90582 Mar 28, 2016 INTRAORL-PERIAPICAL EA ADD FILM Mar 28, 2016 INTRAORL-PERIAPICAL EA ADD FILM Mar 28, 2016 INTRAORL-PERIAPICAL EA ADD FILM Mar 28, 2016 BITEWINGS - FOUR FILMS Mar 28, 2016 PROPHYLAXIS - ADULT Mar 28, 2016 IMMUNIZATIONS No Known Immunizations
--- OUTSIDE RECORDS SUMMARY | 2018-07-10 08:32 | XMS REPORT ---
Author Author RACHNA GONSALES Organization [employer] Address Unknown Phone Unavailable Care Team Providers Care Pottery Decorator Name Role Phone RACHNA GONSALES CP Unavailable Allergies, Adverse Reactions, Alerts Substance Reaction Event Type N.K.D.A. Info Not Available Non Drug Allergy Problems Problem Type Condition Code Onset Dates Condition Status Assessment Family history of cancer Z80.9 Active Assessment Obesity (BMI 30-39.9) E66.9 Active Problem Family history of hyperlipidemia Z83.49 Active Problem Family history of cancer Z80.9 Active Problem Routine health maintenance Z00.00 Active Assessment Routine health maintenance Z00.00 Active Assessment Family history of hyperlipidemia Z83.49 Active Problem Obesity (BMI 30-39.9) E66.9 Active Problem Encounter for dental examination Z01.20 Active Medications No Known Medications Procedures Procedure Coding System Code Date Office Visit, Est Pt., Level 3 CPT-4 41827 Jan 25, 2016 Vital Signs Date/Time: Jan 25, 2016 Cardiac Monitoring Heart Rate 76 bpm Weight 213.0 lbs Height 63 in BMI 37.73 Index Blood Pressure Diastolic 76 mmHg Blood Pressure Systolic 110 mmHg Results No Known Results Summary Purpose eClinicalWorks Submission
--- OUTSIDE RECORDS SUMMARY | 2018-07-10 08:32 | XMS REPORT ---
Author Author SARAH NICHOLE Organization [facility] Address [address] [place] [address] Care Team Providers Care Med Specialist Name Role Phone SARAH NICHOLE Unavailable PROBLEMS Type Condition ICD9-CM Code VEG56-XF Code Onset Dates Condition Status SNOMED Code Problem Family history of hyperlipidemia Z83.49 Active 440712149 Problem Family history of cancer Z80.9 Active 005034418 Problem Routine health maintenance Z00.00 Active 126683729 ALLERGIES No Known Allergies ENCOUNTERS Encounter Location Date Diagnosis [address] [address] Nov, [address] [address] Oct, Allergic contact dermatitis due to food in contact with skin L23.[address] [address] Jul, [address] [address] Feb, Encounter for Nexplanon removal Z30.46 and BMI 40.0-44.9, adult Z68.[address] [address] 15 May, 2016 [facility] [address] [address] Mar, Other viral agents as the cause of diseases classified elsewhere B97.89 and Acute upper respiratory infection, unspecified J06.[address] [address] Mar, Encounter for dental examination and cleaning without abnormal findings Z01.[address] [place] [address] 16 Mar, 2016 Nexplanon insertion Z30.017 [place] [address] [address] Mar, [facility] [address] [address] Mar, Sore throat J02.9 and Strep pharyngitis J02.0 [place] [address] [address] Mar, Encounter for dental examination and cleaning without abnormal findings Z01.20 [place] [address] [address] 12 Jan, 2016 Elevated liver enzymes R74.[address] [address] Jan, Routine health maintenance Z00.00 ; Family history of hyperlipidemia Z83.49 and Family history of cancer Z80.9 [place] [address] [address] 30 Dec, 2015 Routine health maintenance Z00.00 ; Family history of hyperlipidemia Z83.49 ; Family history of cancer Z80.9 and Obesity (BMI 30-39.9 ) E66.9 [facility] [address] [place] [id number] [place] [address] 07 Dec, 2015 Upper respiratory tract infection, unspecified type J06.9 [facility] [address] [id number] Oct, Encounter for dental examination Z01.20 [facility] [address] [id number] Mar, Encounter for dental examination Z01.20 [place] [address] [address] 05 Dec, 2014 Cellulitis and abscess 682.9 [place] [address] [place] [address] Nov, Cellulitis and abscess 682.9 [facility] [address] [address] Oct, TB (tuberculosis) 011.90 [facility] [address] [id number] [id number] 08 Sep, 2014 Dental examination V72.2 [facility] [id number] [place] [address] 14 Jul, 2014 [facility] [address] [place] [address] Jul, [facility] [address] [id number] [place] [address] Jun, [facility] [address] [id number] [address] Jun, [facility] [address] [address] Jun, [facility] [address] [address] Jun, [facility] [address] [place] [address] Mar, [facility] [address] [place] [address] Mar, [facility] [address] [id number] [address] Mar, [facility] [id number] [address] Mar, [facility] [address] [address] Mar, [facility] [id number] [address] Mar, [facility] [address] [id number] [place] [address], [place] [address] Mar, [facility] [address] [id number] [place] [address] Jan, [facility] [address] [facility] [id number] [place] Jan, [facility] [address] [facility] [id number] [place] [address] Sep, [facility] [address] [facility] [id number] [place] [address] Sep, [facility] [address] [facility] [id number] [place] [address] Sep, [facility] [address] [facility] [id number] [place] [address] Sep, [facility] [id number] [place] [address] Sep, [facility] [address] [facility] [id number] [place] [address] Sep, [facility] [address] August, [facility] [address] [id number] [place] [address] May, [facility] [address] [id number] [place] [address] May, [facility] [address] [facility] [id number], [place] [address] Apr, [facility] [address] [facility] [id number] [place] [address] Apr, [facility] [address] [facility] [id number], [place] [address] Nov, [facility] [address] [facility] [id number], [place] [address] Jul, IMMUNIZATIONS No Known Immunizations SOCIAL HISTORY Never Assessed REASON FOR VISIT Food Allergy/ Swelling, PT reports this morning she woke up with a rash on both of her forearms. PT denies change of laundry soap, and bathing soap. -Ozzy BROWN PLAN OF CARE VITAL SIGNS Height 63 in 2017-11-06 Weight 234.4 lbs 2017-11-06 Temperature 98.7 degrees Fahrenheit 2017-11-06 Heart Rate 86 bpm 2017-11-06 Respiratory Rate 20 2017-11-06 Oximetry on room air:98 % 2017-11-06 BMI 41.52 kg/m2 2017-11-06 Blood pressure systolic 130 mmHg 2017-11-06 Blood pressure diastolic 72 mmHg 2017-11-06 MEDICATIONS Medication Instructions Dosage Frequency Start Date End Date Duration Status Daily Vitamin Oct, Active Orally Once a day 1 tablet 24h Not-Taking Triamcinolone Acetonide 0.1 % Externally Twice a day 1 application to affected area 12h Oct, Active Fish Oil Oct, Active Flonase Allergy Relief 50 MCG/ACT Nasally Once a day 1 spray in each nostril 24h Mar, 30 day(s) Not-Taking Iron 65 MG Not-Taking RESULTS No Results PROCEDURES No Known procedures INSTRUCTIONS MEDICATIONS ADMINISTERED No Known Medications MEDICAL (GENERAL) HISTORY Type Description Date Medical History 12/26/15 Surgical History Galbladder removed 2016 Hospitalization History child births
--- OUTSIDE RECORDS SUMMARY | 2018-07-10 08:32 | XMS REPORT ---
Author Author DIALLO TONG [facility] Address [address] [place] [address] Care Team Providers Care Floorperson Name Role Phone ALYCIA DIALLO Unavailable PROBLEMS Type Condition ICD9-CM Code [id number] Code Onset Dates Condition Status SNOMED Code Problem Family history of hyperlipidemia Z83.49 Active 927676512 Problem Family history of cancer Z80.9 Active 369149928 Problem Routine health maintenance Z00.00 Active 820643158 ALLERGIES No Known Allergies ENCOUNTERS Encounter Location Date Diagnosis [place] [id number] [place] [address] Jul, [address] [address] Feb, Encounter for Nexplanon removal Z30.46 and BMI 40.0-44.9, adult Z68.41 [place] [id number] [place] [address] 15 May, 2016 [facility] [address] [place] [id number] [place] [address] Mar, Other viral agents as the cause of diseases classified elsewhere B97.89 and Acute upper respiratory infection, unspecified J06.9 [place] [id number] [place] [address] Mar, Encounter for dental examination and cleaning without abnormal findings Z01.20 [place] [id number] [place] [address] 16 Mar, 2016 Nexplanon insertion Z30.017 [place] [id number] [place] [address] Mar, [facility] [address] [place] [id number] [place] [address] Mar, Sore throat J02.9 and Strep pharyngitis J02.0 [facility] [address] [place] [id number] [place] [address] Mar, Encounter for dental examination and cleaning without abnormal findings Z01.20 [facility] [address] [address] Jan, Elevated liver enzymes R74.[address] [address] 07 Jan, 2016 Routine health maintenance Z00.00 ; Family history of hyperlipidemia Z83.49 and Family history of cancer Z80.9 [place] [address] [place] [id number] [place] [address] Dec, Routine health maintenance Z00.00 ; Family history of hyperlipidemia Z83.49 ; Family history of cancer Z80.9 and Obesity (BMI 30-39.9 ) E66.9 [facility] [address] [place] [id number] [place] [address] Dec, Upper respiratory tract infection, unspecified type J06.9 [facility] [id number] [place] [id number] Oct, Encounter for dental examination Z01.20 [facility] [address] [id number] Mar, Encounter for dental examination Z01.20 [place] [address] [place] [id number] [place] [address] Dec, Cellulitis and abscess 682.[address] [address] Nov, Cellulitis and abscess 682.[address] [address] Oct, TB (tuberculosis) 011.90 [facility] [address] [facility] [id number] [place] [id number] 08 Sep, 2014 Dental examination V72.2 [facility] [address] [id number] [place] [address] 14 Jul, 2014 [facility] [place] [facility] [address] [id number] [place] [address]- [address] 13 Jul, 2014 [facility] [place] [facility] [address] [id number] [place] [address]- 137[address] 17 Jun, 2014 [facility] [place] [facility] [address] [id number] [place] [address]- 1665 17 Jun, 2014 [facility] [place] [facility] [address] [id number] [place] [address]- 9[address] Jun, [facility] [address] [id number] [place] [address]- [address] Jun, [facility] [address] [id number] [place] [address] Mar, [facility] [place] [facility] [address] [id number] [place] [address] Mar, [facility] [place] [facility] [address] [id number] [place] [address] Mar, [facility] [place] [facility] [address] [id number] [place] [address] Mar, [facility] [place] [facility] [address] [id number] [place] [address] Mar, [facility] [place] [facility] [address] [id number] [place] Mar, [facility] [place] [facility] [address] [id number] [place] [address] Mar, [facility] [place] [facility] [address] [id number] [place] [address] Jan, [facility] [place] [facility] [address] [id number] [place] [address]- [address] Jan, [facility] [address] [place] [id number] [address] Sep, [facility] [address] [address] Sep, [facility] [id number] [address]- [address] Sep, [facility] [id number] [address]- [address] Sep, [facility] [id number] [address]- [address] Sep, [facility] [id number] [address]- [address] Sep, [facility] [id number] [address] August, [facility] [address] [address] May, [facility] [address] [address] May, [facility] [address] [address]- [address] Apr, [facility] [id number] [address] Apr, [facility] [address] [address] Nov, [facility] [address] [id number] [address] Jul, IMMUNIZATIONS No Known Immunizations SOCIAL HISTORY Never Assessed REASON FOR VISIT Nexplanon removal--[id number], consent signed PLAN OF CARE Activity Details Follow Up prn Reason: VITAL SIGNS Height 63 in 2017-03-26 Weight 236.3 lbs 2017-03-26 Temperature 98.1 degrees Fahrenheit 2017-03-26 Heart Rate 80 bpm 2017-03-26 Respiratory Rate 18 2017-03-26 BMI 41.85 kg/m2 2017-03-26 Blood pressure systolic 124 mmHg 2017-03-26 Blood pressure diastolic 78 mmHg 2017-03-26 MEDICATIONS Medication Instructions Dosage Frequency Start Date End Date Duration Status Orally Once a day 1 tablet 24h Not-Taking Flonase Allergy Relief 50 MCG/ACT Nasally Once a day 1 spray in each nostril 24h Mar, 30 day(s) Not-Taking Iron 65 MG Not-Taking RESULTS No Results PROCEDURES Procedure Date Ordered Result Body Site NEXPLANON REMOVAL 2017-03-26 N/A REMOVE DRUG IMPLANT DEVICE Mar 26, 2017 INSTRUCTIONS MEDICATIONS ADMINISTERED No Known Medications MEDICAL (GENERAL) HISTORY Type Description Date Medical History 12/26/15 Hospitalization History child births
--- OUTSIDE RECORDS SUMMARY | 2018-07-10 08:32 | XMS REPORT ---
Author Author RACHNA GONSALES Organization [employer] Address Unknown Phone Unavailable Care Team Providers Care Machine Container Washer Name Role Phone RACHNA GONSALES CP Unavailable Allergies No Known Allergies Problems Problem Type Condition Code Onset Dates Condition Status Problem Family history of hyperlipidemia Z83.49 Active Problem Family history of cancer Z80.9 Active Problem Routine health maintenance Z00.00 Active Assessment Elevated liver enzymes R74.8 Active Problem Obesity (BMI 30-39.9) E66.9 Active Problem Encounter for dental examination Z01.20 Active Medications No Known Medications Results No Known Results Summary Purpose eClinicalWorks Submission
--- OUTSIDE RECORDS SUMMARY | 2018-07-10 08:33 | XMS REPORT | Continuity of Care Document ---
Author Author [facility] Organization [facility] Address Unknown Phone Unavailable Care Team Providers Care Technical Support Intern Name Role Phone [facility] Insurance Providers Payer Name Policy Number Subscriber Name Relationship [facility] [employer] [id number] Jonah Leyva 01 Self / Same As Patient Advance Directives Directive Response Recorded Date Advance Directives N 02/01/13 8:49pm Organ Donor Y 02/01/13 8:49pm Problems No Known Problems or Medical conditions. Social History History Response Recorded Date/Time Alcohol Use Denies Use 02/01/13 8:49pm Recreational Drug Use N 02/01/13 8:49pm Recent Foreign Travel N 02/01/13 8:49pm Sexually Transmitted Disease N 02/01/13 8 :49pm HIV/AIDS N 02/01/13 8:49pm Allergies, Adverse Reactions, Alerts Allergen Type Severity Reaction Last Updated No Known Drug Allergies 02/01/13 Medications Medication Dose Units Route Sig Qty Days Prednisone 40 Mg PO DAILY 4 Promethazine HCl/Codeine (Phenergan/Codeine Syrup) 1 Tsp PO Q 4 - 6 HRS PRN PRN 5 Guaifenesin (Mucinex) 600 Mg PO BID Response Recorded Date/Time Status not known Unknown Results No Known Relevant Diagnostic Tests, Laboratory Data and/or Discharge Summary. Encounters Encounter Location Date/Time Departed Emergency Room [facility] 12/07 8:47pm
--- OUTSIDE RECORDS SUMMARY | 2018-07-10 08:33 | XMS REPORT ---
Author OSVALDO Krishnamurthy [employer] Address Unknown Phone Unavailable Care Team Providers Care Design Printer Balloon Name Role Phone OSVALDO GARCIA CP Unavailable Allergies, Adverse Reactions, Alerts Substance Reaction Event Type N.K.D.A. Info Not Available Non Drug Allergy Problems Problem Type Condition Code Onset Dates Condition Status Problem Leukorrhea, not specified as infective 623.5 Active Problem Unspecified contraceptive management V25.9 Active Problem Unspecified breast screening V76.10 Active Problem Dietary surveillance and counseling V65.3 Active Problem Routine gynecological examination V72.31 Active Problem Cellulitis and abscess 682.9 Active Problem Acute sinusitis, unspecified 461.9 Active Problem Acute pharyngitis 462 Active Problem Routine general medical examination at health care facility V70.0 Active Problem examination or test, unconfirmed V72.40 Active Assessment Encounter for dental examination Z01.20 Active Problem Screening for malignant neoplasm of the cervix V76.2 Active Problem Screening examination for venereal disease V74.5 Active Medications Medication Code System Code Instructions Start Date End Date Status Dosage [facility] [address] Orally Once a day 1 tablet Procedures Procedure Coding System Code Date PROPHYLAXIS - ADULT CPT-4 D1110 Apr 24, 2015 TOPICAL FLUORIDE VARNISH CPT-4 D1206 Apr 24, 2015 PERIODIC ORAL EXAMINATION CPT-4 D0120 Apr 24, 2015 Vital Signs Date/Time: Apr 24, 2015 Blood Pressure Diastolic 74 mmHg Blood Pressure Systolic 116 mmHg Results No Known Results Summary Purpose eClinicalWorks Submission
--- OUTSIDE RECORDS SUMMARY | 2018-07-10 08:33 | XMS REPORT ---
Author Author YISSEL EAGLE [facility] [employer] Address Unknown Phone Unavailable Care Team Providers Care Newspaper Peddler Name Role Phone YISSEL EAGLE CP Unavailable Allergies, Adverse Reactions, Alerts Substance Reaction Event Type N.K.D.A. Info Not Available Non Drug Allergy Problems Problem Type Condition ICD-9 Code Onset Dates Condition Status Problem Leukorrhea, [...] examination or test, unconfirmed V72.40 Active Assessment Cellulitis and abscess 682.9 Active Problem Screening for malignant neoplasm of the cervix V76.2 Active Problem Screening examination for venereal disease V74.5 Active Medications No Known Medications Procedures Procedure Coding System Code Date Office Visit, Est Pt., Level 3 CPT-4 76383 Dec 30, 2014 Vital Signs Date/Time: Dec 30, 2014 Temperature 97.8 F Weight 209 lbs Height 63 in BMI 37.02 Index Blood Pressure Diastolic 68 mmHg Blood Pressure Systolic 108 mmHg Cardiac Monitoring Heart Rate 78 bpm Results No Known Results Summary Purpose eClinicalWorks Submission
--- OUTSIDE RECORDS SUMMARY | 2018-07-10 08:33 | XMS REPORT ---
Author Author SONYA SALAS Organization [facility] Address [address] [place] [address] Care Team Providers Care Financial Report Service Sales Agent Name Role Phone SONYA SALAS Unavailable PROBLEMS Type Condition ICD9-CM Code WCB33-SX Code Onset Dates Condition Status SNOMED Code Problem Obesity (BMI 30-39.9) E66.9 Active 922025358 Problem Family history of hyperlipidemia Z83.49 Active 882126830 Problem Family history of cancer Z80.9 Active 089962106 Problem Routine health maintenance Z00.00 Active 325064700 ALLERGIES No Known Allergies SOCIAL HISTORY Never Assessed PLAN OF CARE Activity Details Follow Up prn Reason: VITAL SIGNS Height 63 in 2016-04-21 Weight 218.6 lbs 2016-04-21 Temperature 98.0 degrees Fahrenheit 2016-04-21 Heart Rate 84 bpm 2016-04-21 Respiratory Rate 18 2016-04-21 BMI 38.72 kg/m2 2016-04-21 Blood pressure systolic 126 mmHg 2016-04-21 Blood pressure diastolic 78 mmHg 2016-04-21 MEDICATIONS Medication Instructions Dosage Frequency Start Date End Date Duration Status Flonase Allergy Relief 50 MCG/ACT Nasally Once a day 1 spray in each nostril 24h Mar, 30 day(s) Active RESULTS No Results PROCEDURES No Known procedures IMMUNIZATIONS No Known Immunizations MEDICAL (GENERAL) HISTORY Type Description Date Medical History 12/26/15 Hospitalization History child births
--- OUTSIDE RECORDS SUMMARY | 2018-07-10 08:33 | XMS REPORT ---
Author Author FEDERICO MATHEWS [facility] eClinicalWorks Address Unknown Phone Unavailable Care Team Providers Care Limb Driver Name Role Phone FEDERICO MATHEWS CP Unavailable Allergies, Adverse Reactions, Alerts Substance [...] Instructions Start Date End Date Status Dosage Dapsone [facility] [address]-66 25 MG Orally Twice a day Dec 25, 2014 Jan 04, 2015 1 tablet Septra DS NDC 0 not defined Doxycycline Hyclate [facility] [address]-66 100 MG Orally every 12 hrs Dec 25, 2014 Dec 30, 2014 1 capsule Procedures Procedure Coding System Code Date Office Visit, Est Pt., Level 3 CPT-4 49909 Dec 25, 2014 Vital Signs Date/Time: Dec 25, 2014 Temperature 97.5 F Weight 208.8 lbs Height 63 in BMI 36.98 Index Blood Pressure Diastolic 70 mmHg Blood Pressure Systolic 122 mmHg Cardiac Monitoring Heart Rate 80 bpm Results No Known Results Summary Purpose eClinicalWorks Submission
[2018-07-10 10:10] LABS: BASOPHILS % (AUTO) 0 % (0-10); EOSINOPHILS # (AUTO) 0.1 10^3/uL (0.0-0.3); EOSINOPHILS % (AUTO) 1 % (0-10); HEMATOCRIT 33 % (35-52); HEMOGLOBIN 10.6 G/DL (11.5-16.0); LYMPHOCYTES # (AUTO) 1.4 X 10^3 (1.0-4.0); LYMPHOCYTES % (AUTO) 15 % (12-44); MEAN CORPUSCULAR HEMOGLOBIN 24 PG (25-34); MEAN CORPUSCULAR HGB CONC 32 G/DL (32-36); MEAN CORPUSCULAR VOLUME 77 FL (80-99); MEAN PLATELET VOLUME 9.6 FL (7.4-10.4); MONOCYTES # (AUTO) 0.6 X 10^3 (0.0-1.0); MONOCYTES % (AUTO) 6 % (0-12); NEUTROPHILS # (AUTO) 7.5 X 10^3 (1.8-7.8); NEUTROPHILS % (AUTO) 78 % (42-75); PLATELET COUNT 352 10^3/uL (130-400); RED CELL DISTRIBUTION WIDTH 14.5 % (10.0-14.5); WHITE BLOOD COUNT 9.7 10^3/uL (4.3-11.0)
--- NOTE | 2018-07-10 10:21 | Diagnostic Imaging Report ---
Indication: Cough and dyspnea. Comparison: 02/01/2013. Discussion: Single portable upright view of the chest was obtained. Normal heart size. No focal consolidation, pleural fluid, or pneumothorax. No osseous abnormality. Impression: 1. Negative portable chest. Dictated by: Dictated on workstation # [id number]
[2018-07-10 10:26] LABS: ALANINE AMINOTRANSFERASE 13 U/L (0-55); ALBUMIN 3.7 GM/DL (3.2-4.5); ALKALINE PHOSPHATASE 115 U/L (40-136); BILIRUBIN,TOTAL 0.2 MG/DL (0.1-1.0); BUN/CREATININE RATIO 17; CALCIUM 8.8 MG/DL (8.5-10.1); CARBON DIOXIDE 24 MMOL/L (21-32); CHLORIDE 107 MMOL/L (98-107); CREATININE SERUM 0.71 MG/DL (0.60-1.30); GFR ESTIMATED > 60; GLUCOSE 95 MG/DL (70-105); POTASSIUM 3.9 MMOL/L (3.6-5.0); SODIUM 139 MMOL/L (135-145); TOTAL PROTEIN 6.9 GM/DL (6.4-8.2)
--- NOTE | 2018-07-10 10:50 | ED Chest Pain ---
General Chief Complaint: Chest Wall/Rib Pain Stated Complaint: RT SIDE PAIN Nursing Triage Note: PT PRESENTS TO ED WITH COMPLAINTS OF R SIDED LOWER BACK/RIBCAGE PAIN. STATES IT STARTED AT 0730- AND DESCRIBES IT A SHARP STABBING PAIN. PT STATES SHE WAS RECENTLY DIAGNOSED WITH BRONCHITIS AND HAS BEEN COUGHING ALOT RECENTLY. Nursing Sepsis Screen: No Definite Risk Source: patient Exam Limitations: no limitations History of Present Illness Date Seen by Provider: Jul 10, 2018 Time Seen by Provider: 10:46 Initial Comments The patient is a 33-year-old female. She has had a cough and respiratory symptoms for 4-5 days. This morning while bending over she coughed harshly and began to have pain in her right posterior lower rib cage. There is some discomfort when coughing or taking a deep breath. Timing/Duration: 1-3 hours Allergies and Home Medications Allergies Coded Allergies: No Known Drug Allergies (Unverified , 02/01/13) Home Medications Ciprofloxacin HCl 500 Mg Tablet, 500 MG PO BID Prescribed by: BONNIE LANDRY on 06/10/16 1238 Docusate Sodium 100 Mg Capsule, 100 MG PO BID Prescribed by: ELSIE HANCOCK on 06/11/16 1314 Hydrocodone Bit/Acetaminophen 1 Each Tablet, 1 EACH PO Q4H PRN for PAIN Prescribed by: ELSIE HANCOCK on 06/11/16 1314 Patient Home Medication List Home Medication List Reviewed: Yes Review of Systems Review of Systems Constitutional: see HPI EENTM: No Symptoms Reported Respiratory: See HPI, Cough Cardiovascular: No Symptoms Reported Gastrointestinal: No Symptoms Reported Genitourinary: No Symptoms Reported Musculoskeletal: no symptoms reported Skin: no symptoms reported Psychiatric/Neurological: No Symptoms Reported Endocrine: No Symptoms Reported Hematologic/Lymphatic: No Symptoms Reported Past [id number] Hx Patient Social History Alcohol Use: Denies Use Recreational Drug Use: No Smoking Status: Never a Smoker Recent Foreign Travel: No Contact w/Someone Who Travel: No Recent Infectious Disease Expo: No Recent Hopitalizations: No Physical Abuse: No Sexual Abuse: No Mistreated: No Fear: No Immunizations Up To Date Tetanus Booster (TDap): Unknown PED Vaccines UTD: Yes Seasonal Allergies Seasonal Allergies: No Past Medical History Surgeries: Yes Gallbladder Respiratory: No Cardiac: No Neurological: No Reproductive Disorders: No Female Reproductive Disorders: Denies Sexually Transmitted Disease: No HIV/AIDS: No Genitourinary: No Gastrointestinal: Yes Gall Bladder Disease Musculoskeletal: No Endocrine: No HEENT: No Cancer: No Psychosocial: No Integumentary: No Blood Disorders: No Adverse Reaction/Blood Tranf: No Family Medical History Hypercholesterolemia 19 MOTHER No Pertinent Family Hx Physical Exam Vital Signs Vital Signs - First Documented 07/10/18 09:12 Temp 97.6 Pulse 68 Resp 20 B/P (MAP) 111/89 (96) Pulse Ox 99 Capillary Refill : Less Than 3 Seconds Height, Weight, BMI Height: 5'3.00" Weight: 230lbs. 0.0oz. 104.268414ou; 38.4 BMI Method:Stated General Appearance: Mild Distress HEENT: Normal ENT Inspection Neck: Normal Inspection Respiratory: Chest Non Tender, Lungs Clear, Normal Breath Sounds, No Accessory Muscle Use, No Respiratory Distress Cardiovascular: Regular Rate, Rhythm, No Edema, No Gallop, No JVD, No Murmur, Normal Peripheral Pulses Gastrointestinal: Normal Bowel Sounds, No Organomegaly, No Pulsatile Mass, Non Tender, Soft Extremity: Normal Capillary Refill, Normal Inspection, Normal Range of Motion, Non Tender, No Calf Tenderness, No Pedal Edema Neurologic/Psychiatric: Alert, Oriented x3, No Motor/Sensory Deficits, Normal Mood/Affect Skin: Normal Color, Warm/Dry Lymphatic: No Adenopathy Progress/Results/Core Measures Results/Orders Lab Results Laboratory Tests Test 07/10/18 10:00 Range/Units White Blood Count 9.7 4.3-11.0 10^3/uL Red Blood Count 4.34 L 4.35-5.85 10^6/uL Hemoglobin 10.6 L 11.5-16.0 G/DL Hematocrit 33 L 35-52 % Mean Corpuscular Volume 77 L 80-99 FL Mean Corpuscular Hemoglobin 24 L 25-34 PG Mean Corpuscular Hemoglobin Concent 32 32-36 G/DL Red Cell Distribution Width 14.5 10.0-14.5 % Platelet Count 352 130-400 10^3/uL Mean Platelet Volume 9.6 7.4-10.4 FL Neutrophils (%) (Auto) 78 H 42-75 % Lymphocytes (%) (Auto) 15 12-44 % Monocytes (%) (Auto) 6 0-12 % Eosinophils (%) (Auto) 1 0-10 % Basophils (%) (Auto) 0 0-10 % Neutrophils # (Auto) 7.5 1.8-7.8 X 10^3 Lymphocytes # (Auto) 1.4 1.0-4.0 X 10^3 Monocytes # (Auto) 0.6 0.0-1.0 X 10^3 Eosinophils # (Auto) 0.1 0.0-0.3 10^3/uL Basophils # (Auto) 0.0 0.0-0.1 10^3/uL Sodium Level 139 135-145 MMOL/L Potassium Level 3.9 3.6-5.0 MMOL/L Chloride Level 107 98-107 MMOL/L Carbon Dioxide Level 24 21-32 MMOL/L Anion Gap 8 5-14 MMOL/L Blood Urea Nitrogen 12 7-18 MG/DL Creatinine 0.71 0.60-1.30 MG/DL Estimat Glomerular Filtration Rate > 60 BUN/Creatinine Ratio 17 Glucose Level 95 70-105 MG/DL Calcium Level 8.8 8.5-10.1 MG/DL Corrected Calcium 9.0 8.5-10.1 MG/DL Total Bilirubin 0.2 0.1-1.0 MG/DL Aspartate Amino Transf (AST/SGOT) 10 5-34 U/L Alanine Aminotransferase (ALT/SGPT) 13 0-55 U/L Alkaline Phosphatase 115 40-136 U/L Total Protein 6.9 6.4-8.2 GM/DL Albumin 3.7 3.2-4.5 GM/DL My Orders Orders - ADRI AVILA MD Cbc With Automated Diff (07/10/18 09:50) Comprehensive Metabolic Panel (07/10/18 09:50) Chest 1 View, Ap/Pa Only (07/10/18 09:50) Vital Signs/I&O 07/10/18 09:12 Temp 97.6 Pulse 68 Resp 20 B/P (MAP) 111/89 (96) Pulse Ox 99 Blood Pressure Mean: 96 Departure Impression Primary Impression: Rib pain Disposition: 01 HOME, SELF-CARE Condition: Stable/Unchanged Departure-Patient Inst. Decision time for Depature: 10:48 Referrals: [facility] (PCP/Family) Primary Care Physician Patient Instructions: Rib Fracture (DC) Add. Discharge Instructions: All discharge instructions reviewed with patient and/or family. Voiced understanding. Use cough lozenges to suppress her cough. Try heat or ice in the area of the pain. Take ibuprofen 400-600 mg every 6 hours for pain. ADRI AVILA MD Jul 10, 2018 10:50
[2018-07-10 11:23] VITALS: BP 118/80
== END 2018-07-10 11:23 | disposition home or self-care (01) ==
LOC: EDUNIT# 08:25 → ER 08:27
DX: R07.81 Pleurodynia (principal); Z98.890 Other specified postprocedural states; Z87.19 Personal history of other diseases of the digestive system; Z82.49 Family history of ischemic heart disease and other diseases of the circulatory system
CPT/HCPCS: 36415; 71045; 80053; 85025